=== PATIENT | female | born 1960 | race Caucasian/White ===

== ENCOUNTER → 2020-12-05 | Outpatient (CLI) | payer BC | LOC: EXRD 14:35 | DX: R07.9 Chest pain, unspecified (principal) | CPT/HCPCS: 71046 ==

== ENCOUNTER → 2021-02-28 | Outpatient (CLI) | payer BC | LOC: RAD 12:53 | DX: J20.9 Acute bronchitis, unspecified (principal) | CPT/HCPCS: 71046 ==